=== PATIENT | male | born 1980 | race Caucasian/White ===

== ENCOUNTER → 2018-05-28 14:05 | Outpatient (CLI) | payer BC, SELFPAY ==
--- NOTE | 2018-05-28 14:09 | RAD_ITS ---
STUDY: X-RAY - ABDOMEN/PELVIS REASON FOR EXAM: Male, 38 years old. Right-sided abdominal pain. TECHNIQUE: Two AP supine views of the abdomen and pelvis. COMPARISON: None. FINDINGS: There is an abundance of fecal material throughout the colon. The visualized liver, spleen and kidneys are grossly normal in size and morphology. Normal soft tissue structures. Normal visualized osseous structures. RAD/Abdomen Single View IMPRESSION: Large amount of fecal material is seen in the colon. Electronically Signed: Rony Izaguirre, at 11:14 EDT , Service support ,
== END ==
PROVIDERS: Referring Provider Nurse Practitioner Adult Health; Visit Provider Nurse Practitioner Adult Health
DX: N20.0 Calculus of kidney (principal)
CPT/HCPCS: 74018

== ENCOUNTER 2022-08-30 08:30 | Outpatient (RCR) | payer BC, SELFPAY ==
--- NOTE | 2022-08-29 10:34 | HP.PTEVAL_ITS ---
Patient's Visit Information RAUL NEWMAN is a 42 year old M referred to Physical Therapy by Dr. Mickey Lewis DO with a diagnosis of BPPV. Date of Evaluation: 08/29/22 Physical Therapist: Satinder Rogers DPT, OCS, CSCS - Visit Plan Frequency: 1-2x /Week Duration: 2-4 Weeks Plan: 1-2x/week as needed for positional treatments and education on management and exercise for vestibular infection as needed. Pt going out of town next Sunday to [place]. - Subjective Sunday night started pressure in R ear and woke up the next morning and more pressure in R ear muffling and high pitched sounds hurt all day yesterday. went to work and put earplug in which helped. woke up this morning to workout and stumbling. Walked back to bed and got nauseous. Been nauseous ever since. Gets spinning changing positions, spun when lying down and sitting up, now things move when he moves his head. Has not slept well for two days but normally does. 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 Worked yesterday but not today. Enjoys working out. - Objective Pushed back to PT eval room in by . Patient is nauseous entire time in PT, holds head still and forehead in hands as he talks and closes his eyes often, does much of the talking. He is breathing normally and A&O to person and day and place. He is able to move head and neck slowly with AROM WFL. Walks hesitantly and cautiously 20 feet today with SBA to I but hesitant to move head and slow in gait. - L hallpike lulu. + R hallpike lulu for up torsional nystagmus 45 seconds in duration. Treated with modified jeny R and then education on management of infection as well as BPPV. - Balance/Special Test Scores Dizziness Score: 58 - Goals Goal 1:: Walk into PT confidently with good gait pattern Goal Time Frame: 2-4 Weeks Goal 2:: FGA 30 Goal Time Frame: 2-4 Weeks Goal 3:: Pt feel dizzyness and nausea 100% gone in order to return to work. Goal Time Frame: 2-4 Weeks Goal 4:: DHI 10 or less. - Rehabilitation Potential Physical Therapy Diagnosis: BPPV possibly acute vestibular infection Rehabilitation Potential: Fair - Anticipated Interventions Patient/Client Instruction: Educate patient on: Condition, Plan of Care For the Purpose of:: To increase tolerance to activity/condition/position Comment: positional ex, vestibular ex and education For the Purpose of:: To increase tolerance to activity/condition/position Thank you for the opportunity to evaluate your patient. For Medicare and Medicare HMO plans, please review the plan of care and approve it. It will need to be FAXED BACK to us at [phone] for Medicare purposes. For Medicare only, by signing this I certify the plan of care. Please let me know if there are questions or concerns regarding this plan of care. Physician Signature: Date:
--- NOTE | 2022-10-27 13:55 | HP.PT.NRP ---
Patient Information Patient Information: RAUL NEWMAN was seen in my office for initial evaluation on 08/29/22. The following Plan of Care was established for this patient: POC Established Initial Frequency: 1-2x /Week Initial Duration: 2-4 Weeks Anticipated Interventions Patient/Client Instruction: Educate patient on: Condition and Plan of Care For the Purpose of:: To increase tolerance to activity/condition/position For the Purpose of:: To increase tolerance to activity/condition/position Last Seen Last Seen: This patient was last seen in our office 08/30/22. Pertinent comments regarding their Physical therapy will appear below: Pt seen 2 visits of POC for vertigo, did not attend the next one. At this point, it has been over 6 weeks and I will discontinue due to nonattendance. At this point I will be discontinuing this patient from physical therapy. I would be happy to see this patient again in the future if found appropriate by the physician. Thank you! Satinder Rogers, DPT, OCS, CSCS Balance/Gait/Functional tests Balance/Special Test Scores Dizziness Score: 58
== END 2022-08-30 19:00 | disposition home or self-care (01) ==
LOC: PT 08:30
PROVIDERS: Referring Provider Student in an Organized Health Care Education/Training Program; Visit Provider Student in an Organized Health Care Education/Training Program
DX: H81.10 Benign paroxysmal vertigo, unspecified ear (principal); Z76.89 Persons encountering health services in other specified circumstances
CPT/HCPCS: 97161; 97530